=== PATIENT | female | born 1995 | race Two or more races ===

== ENCOUNTER 2016-07-14 14:56 | Emergency (ER) | payer BC ==
--- NOTE | ~2016-07-14 | ER ---
Unit #: [id number] #: [id number] Patient: ADALID CALLAWAY [id number] [address] [place], [place] [address] [id number] E MR#: [id number] NAME: ADALID CALLAWAY ROOM: Sex: F Age: 21 : 1995 Service Date: 07/14/2016 Attending Physician: Benigno Zelaya M.D. Primary Care Physician: [facility] EMERGENCY DEPT PHYSICIAN NOTE EMERGENCY DEPARTMENT COURSE Please see the written T sheet for the full details of the encounter. Miss Callaway is a 21-year-old woman who presented to the emergency department, being referred by an immediate care center, with a chief complaint of abdominal pain and nausea and vomiting. She stated that the pain and vomiting had been present for the last four days and was primarily located in the epigastric region. Upon arriving here, while in the waiting room nursing staff noticed the patient tempting to induce vomiting by sticking her finger in her throat. When I went to examine the patient she was in no apparent distress and was well appearing; however, she was complaining of severe abdominal pain and persistent nausea despite being administered IM Phenergan at the immediate care center. Her abdominal exam demonstrated exaggerated tenderness to palpation in all areas, especially in the epigastric region. Thus, due to her level of pain and tenderness a CT scan was ordered to rule out any intraabdominal pathology. Blood work was largely unremarkable; however, urine did show markers for a cystitis with 10 to 25 whites per high-powered field and 100 to 200 RBCs and 4+ bacteria. Upon seeing the urine result but before the CT was resulted I informed the family and the patient of the results and told them that I would be administering IV Rocephin to treat the urinary tract infection while she was here. However, I stated since she was a young woman in good health and vital signs were stable, if the CT was negative we would likely be able to send her home with a prescription for an oral antibiotic. At this the mother of the patient became very concerned and wanted to know if we had ruled out "blood poisoning." I explained that if she was referring to sepsis, nothing about the patient's presentation indicated that and that we had conducted a full examination and laboratory evaluation as well as performed the CT to rule out any severe or acute surgical findings. The mother of the patient seemed unsatisfied with this answer. After administering the Rocephin the CT was resulted which showed no acute disease, specifically no evidence of pyelonephritis, appendicitis or any other concerning intraabdominal findings. I went back to inform the patient and the family of the test result. The patient again was calm, lying in bed in no apparent distress. When I informed them that I would be sending them home, both the mother and the patient became very concerned stating that she was still having a high level of pain despite being given the IV morphine. I responded that I could attempt to give her some oral pain medication to help before we were to discharge her and again they seemed very concerned with the idea of her being sent home. At that I stated if they were still at a high level of concern and she did not feel that her symptoms had been significantly improved during her stay in the emergency department I could offer the patient an admission to our facility. At this the patient Unit #: [id number] #: [id number] Patient: ADALID CALLAWAY became, again, unhappy and stated that she did not want to be admitted but instead asked if we could give the antibiotics some time to see if they would help her pain. The mom, too, seemed agitated that I suggested that the patient be admitted for her [id number] symptoms. I was uncertain what they desired given that I offered them admission versus discharge with appropriate medication and they seemed unhappy with both choices. They became increasingly upset, refused to be admitted and asked that they be discharged immediately with the mother remarking that she would be seeking care in another facility as she was unhappy with the care that was rendered here in the emergency department today. I again offered them evaluation by another provider and/or admission to our facility which they refused and again requested they be discharged as soon as possible. Dictated by... Jose L Haro/adolph TD: 07/14/2016 15:41 JOB #: [id number] EMERGENCY DEPT PHYSICIAN NOTE Page 1 of 1 X Benigno Zelaya MD X EMERGENCY DEPARTMENT REPORT
--- NOTE | ~2016-07-14 | CT2 ---
[facility] A Service [facility] RADIOLOGY TEXT RESULTS PATIENT: ADALID CALLAWAY LOCATION: [facility] : [birth year] UNIT #: [id number] AGE: [address]: Benigno Zelaya MD SEX: F ORDER DR: [id number] [facility] [address] [place], [place] [address] [id number] E MR#: [id number] Acc #: [id number] NAME: ADALID CALLAWAY : 1995 SEX: F STUDY DATE/TIME: 07/14/2016 14:27 UNIT: [facility] ROOM: STUDY DESCRIPTION: CT Abd and Pelv W Cont Attending Physician: Benigno Zelaya M.D. Ordering Physician: Benigno Zelaya M.D. Primary Care Physician: [facility], [facility]. MEDICAL IMAGING REPORT This report is preliminary unless electronic signature is present EXAM CT of abdomen and pelvis. DATE OF EXAM 07/14/2016 INDICATIONS Upper abdominal pain and vomiting for [address] of the abdomen and pelvis with IV contrast (100 mL Isovue-370 IV contrast). NOTE: This CT exam was performed with one or more of the following radiation dose reduction techniques: automatic exposure control, adjustment of mA and/or kV according to patient size, and iterative reconstruction. COMPARISON None available. FINDINGS ABDOMEN: The solid abdominal organs are within normal limits. The gallbladder is not distended. The bowel is not dilated. The appendix is normal. The abdominal aorta is normal in caliber. PELVIS: There is a small volume free fluid the pelvis. The uterus and ovaries are within normal limits. Bladder is decompressed. No enlarged pelvic or inguinal lymph nodes. No acute osseous abnormalities. [facility] A Service [facility] RADIOLOGY TEXT RESULTS PATIENT: ADALID CALLAWAY LOCATION: [facility] : [birth year] UNIT #: [id number] AGE: [address]: Benigno Zelaya MD SEX: F ORDER DR: IMPRESSION 1. Small volume of free fluid the pelvis is likely physiologic. 2. Otherwise, there is no significant abnormalities. The appendix is normal. Dictated by... Dmitriy Finney M.D. THIS IS AN ELECTRONICALLY VERIFIED REPORT Dmitriy Finney M.D. at 07/15/2016 9:53 AM LETI/darby TD: 07/14/2016 15:42 JOB #: [id number] MEDICAL IMAGING REPORT Page 1 of 1 COPY
[2016-07-14 13:03] LABS: BASOPHIL# 0.1 X10e3 (0-0.3); BASOPHIL% 0.6 % (0-2.5); HEMATOCRIT 43.5 % (35.0-45.0); HEMOGLOBIN 13.7 gm/dL (12.0-16.0); LYMPHOCYTE# 2.2 X10e3 (1.0-3.5); LYMPHOCYTE% 14.8 % (17.0-45.0); MEAN CELL VOLUME 84.1 FL (83-96); MEAN CORPUSCULAR HEMOGLOBIN 26.5 PG (28-34); MEAN CORPUSCULAR HGB CONC 31.5 g/dL (30-36); MEAN PLATELET VOLUME 7.6 FL (6.5-11.5); MONOCYTE# 0.6 X10e3 (0-1.0); MONOCYTE% 4.3 % (3.0-12.0); NEUTROPHIL# 11.9 X10e3 (1.5-7.1); NEUTROPHIL% 80.3 % (40-75); PLATELET COUNT 335 X10e3 (140-420); RED BLOOD COUNT 5.18 X10e (3.90-5.30); RED CELL DISTRIBUTION WIDTH 14.4 % (11.0-15.5); WHITE BLOOD COUNT 14.8 X10e3 (4.0-10.5)
[2016-07-14 13:04] LABS: DIFF IND NO
[2016-07-14 13:28] LABS: ALBUMIN SERUM 4.6 g/dL (3.5-5.0); ALKALINE PHOSPHATASE 62 U/L (32-92); ALT (SGPT) 15 U/L (10-40); AST (SGOT) 26 U/L (10-42); BILIRUBIN, DIRECT <0.1 mg/dL (0.0-0.2); BILIRUBIN,INDIRECT 0.5 mg/dL (0.0-0.9); BILIRUBIN,TOTAL 0.6 mg/dL (0.2-2.0); BLOOD UREA NITROGEN 9 mg/dL (9-23); BUN/CREATININE RATIO 11.25; CALCIUM SERUM 9.4 mg/dL (8.4-10.2); CARBON DIOXIDE 21 mmol/L (22-31); CHLORIDE 110 mmol/L (100-111); CREATININE SERUM 0.8 mg/dL (0.6-1.4); GLOM FILT RATE Estimated 106.2 mL/min (>60); GLUCOSE FASTING 122 mg/dL (70-110); LIPASE 13 U/L (22-51); POTASSIUM 3.2 mmol/L (3.5-5.1); PROTEIN TOTAL SERUM 7.9 g/dL (6.0-8.3); SODIUM 143 mmol/L (135-145)
[2016-07-14 13:58] LABS: URINE SOURCE CLEAN CATCH
[2016-07-14 14:10] LABS: URINE APPEARANCE CLEAR; URINE BILIRUBIN NEG (NEG); URINE BLOOD 3+ (NEG); URINE COLOR YELLOW; URINE GLUCOSE NEG (NEG); URINE KETONE TRACE (NEG); URINE LEUKOCYTE ESTERASE 1+ (NEG); URINE NITRATE NEG (NEG); URINE PROTEIN 1+ (NEG); URINE SPECIFIC GRAVITY 1.022 (1.003-1.035)
[2016-07-14 14:22] LABS: CULTURE INDICATED? YES; URBCS1 AUWI 100-200 /[HPF] (0-2); URINE BACTERIA AUWI 4+ (NEGATIVE); URINE SQUAMOUS EPITHELIAL CELL FEW /[HPF]
[2016-07-14 14:35] LABS: U HYALINE CASTS AUWI 0-2 /[LPF]
[2016-07-14 14:36] LABS: URINE MUCUS PRESENT
[~2016-07-14 14:56] MED LIST: IBUPROFEN PO
== END 2016-07-14 15:50 | disposition home or self-care (01) ==
LOC: CED 14:56
DX: N30.01 Acute cystitis with hematuria (principal); K21.9 Gastro-esophageal reflux disease without esophagitis; J45.909 Unspecified asthma, uncomplicated
CPT/HCPCS: 36415; 74177; 80048; 80076; 81003; 83690; 85025; 87086; 87088; 87186; 96361; 96365; 96374; 96375; 99284; J0696; J2270; J2405; Q9967